=== PATIENT | female | born 1975 | race Caucasian/White ===

== ENCOUNTER → 2017-05-26 15:34 | Outpatient (CLI) | payer BC | END | disposition home or self-care (01) | LOC: D.MAMMO 05-20 08:00 | DX: Z12.31 Encounter for screening mammogram for malignant neoplasm of breast (principal) ==

== ENCOUNTER → 2017-08-03 14:35 | Outpatient (CLI) | payer OTHER | END | disposition home or self-care (01) | LOC: D.LABREF 14:35 | DX: R31.9 Hematuria, unspecified (principal) ==

== ENCOUNTER → 2018-12-14 18:51 | Outpatient (CLI) | payer OTHER | END | disposition home or self-care (01) | LOC: D.MAMMO 11-14 16:00 | PROVIDERS: ATTEND Family Medicine | DX: Z12.31 Encounter for screening mammogram for malignant neoplasm of breast (principal) ==

== ENCOUNTER 2019-03-03 08:35 | Day surgery (SDC) | payer OTHER ==
[2019-03-01 15:02] LABS: BASOPHILS 0.2 % (0-2); EOSINOPHILS 4.5 % (0-7); HEMATOCRIT 33.3 % (36.0-48.0); HEMOGLOBIN 10.9 g/dL (12-16); LYMPHOCYTES 27.2 % (15-50); MCH 26.6 pg (26.0-34.0); MCHC 32.7 g/dL (31.0-37.0); MCV 81.2 fL (80.0-100.0); MEAN PLATELET VOLUME 10.5 fL (7.4-10.4); MONOCYTES 8.3 % (2-11); NEUTROPHILS 59.8 % (40-80); PLATELET COUNT 219 10x3/uL (130-400); RDW 14.2 % (11.5-14.5); WBC 4.9 10x3/uL (4.8-10.8)
[~2019-03-03] VITALS: Ht 172.7 cm; Wt 71.2 kg
--- NOTE | ~2019-03-03 | OP ---
PATIENT NAME: SERA WEAVER MEDICAL RECORD: [id number] [facility] DATE: SURGEON: JOSÉ MIGUEL KINSEY MD DATE OF OPERATION: 03/03/2019 PREOPERATIVE DIAGNOSIS: Menorrhagia. POSTOPERATIVE DIAGNOSIS: Menorrhagia and endometrial polyps. PROCEDURES: Hysteroscopy, dilation and curettage, and NovaSure endometrial ablation. SURGEON: José Miguel Kinsey MD ESTIMATED BLOOD LOSS: Minimal. INTRAVENOUS FLUIDS: Per anesthesia record. ANESTHESIA: General endotracheal. HYSTEROSCOPIC FLUID LOSS: Less than 50 cc. FINDINGS: Small polypoid proliferative-appearing endometrium noted on hysteroscopy. COMPLICATIONS: None apparent. PROCEDURE IN DETAIL: The patient was taken to the operating room, where general anesthesia was achieved without any difficulty. The patient was then prepped and draped in normal sterile fashion in the dorsal lithotomy position in the [facility]. The bladder was then drained of approximately 100 cc of clear yellow urine. A Graves speculum was then placed into the vagina and the anterior lip of the cervix was identified and grasped on its anterior lip. Uterus sounded to approximately 9 cm, at which point the patient was dilated to approximately 5 mm. At this point, the hysteroscope was introduced into the uterus and survey was performed. Curettage was performed in all 4 quadrants with return of copious proliferative-appearing tissue. Minimal bleeding was noted following the D&C and the NovaSure device was then calibrated. Cervical length was measured using the provided NovaSure sound. The patient was then dilated to approximately 8 mm and the NovaSure was introduced into the intrauterine cavity and deployed slowly. The width was determined and placed into the machine. A cervical cap was then advanced towards the cervix. Both pressurization and vacuum precheck were found to be adequate and then a burn cycle was performed. Following the end of the cycle of the NovaSure, a cervical collar cap was then withdrawn backwards and the NovaSure device was removed from the cervical canal using the bow and arrow method. No bleeding was noted from the cervix at that time and the single-tooth tenaculum was then removed. The patient tolerated the procedure well and was transferred to postanesthesia recovery stable without incident. TRANSINT:[id number] Voice Confirmation ID: [id number] DOCUMENT ID: [id number] OPERATIVE REPORT [id number] SERA WEAVER JOSÉ MIGUEL KINSEY MD CC: [id number] DICTATION DATE: 03/26/19 1725 OPTIMIZATION ANALYST: 03/26/19 181 [facility] SDC 03/03/19 [place] [id number] [place] [id number]
[~2019-03-03 08:35] MED LIST: KLONOPIN0.5 MG; LEVOTHYROXINE125 MCG PO; NP THYROID30 MG PO
[2019-03-03] MEDS ORDERED: ULTRAM50 MG PO (09:47)
[2019-03-03] MEDS ORDERED: BUTALB-APAP-CA1 EACH (09:48)
[2019-03-03] MEDS ORDERED: FUROSEMIDE20 MG PO (09:49)
[2019-03-03 10:05] VITALS: BP 121/70; Ht 172.7 cm; Wt 71.2 kg
[2019-03-03 10:16] LABS: HCG URINE NEGATIVE (NEGATIVE)
--- NOTE | 2019-03-03 12:54 | NUR ---
ABLATION TIME 1:45 SECONDS
== END 2019-03-03 15:55 | disposition home or self-care (01) ==
LOC: D.OPS 08:35 → D.PAN 09:50 → D.OPS 10:30 → D.PAN 10:30 → D.OPS 11:20
PROVIDERS: ATTEND Obstetrics & Gynecology
DX: N92.0 Excessive and frequent menstruation with regular cycle (principal); N84.0 Polyp of corpus uteri

== ENCOUNTER 2020-12-31 14:00 | Outpatient (CLI) | payer OTHER ==
[2019-03-03 10:05] VITALS: BMI 23.9
[~2020-12-31 14:00] MED LIST changes: +BUTALB-APAP-CA1 EACH; +FUROSEMIDE20 MG PO; +ULTRAM50 MG PO
== END 2020-12-31 23:59 | disposition home or self-care (01) ==
LOC: D.MAMMO 14:00
PROVIDERS: ATTEND Family Medicine
DX: Z12.31 Encounter for screening mammogram for malignant neoplasm of breast (principal)